=== PATIENT | male | born 1955 | race Caucasian/White ===

== ENCOUNTER 2019-11-23 04:26 | Inpatient (IN) ==
[2019-11-23] MEDS ORDERED: Ipratropium/Albuterol Neb 3 ML IH ONE (04:43)
[2019-11-23] MEDS ORDERED: methylPREDNISolone 125 MG/2 ML VIAL IVP ONE (04:43)
[2019-11-23 05:24] LABS: Basophils % 0.2 %; Eosinophils % 0.2 %; Hematocrit 41.6 % (37.5-50.1); Immature Granulocytes % 0.6 % (0-4); Lymphocytes # 3.1 K/mcL (0.6-4.6); Lymphocytes % 16.5 %; Mean Corpuscular HGB Conc 32.2 g/dL (31.6-35.5); Mean Corpuscular Hemoglobin 29.6 pg (28.0-33.3); Mean Corpuscular Volume 91.8 fL (83.0-100.0); Mean Platelet Volume 10.1 fL (9.4-12.4); Monocytes # 1.8 K/mcL (0.0-1.3); Monocytes % 9.4 %; Neutrophils # 13.7 K/mcL (1.6-8.9); Platelet Count 329 K/mcL (140-400); Red Blood Count 4.53 M/mcL (4.19-5.50); Red Cell Distribution Width 13.5 % (11.5-14.5); Segmented Neutrophils % 73.1 %; White Blood Count 18.7 K/mcL (4.3-11.1)
[2019-11-23 05:28] LABS: Hemoglobin 13.4 g/dL (12.9-16.9)
[2019-11-23] MEDS ORDERED: Azithromycin 500 MG in D5% in Water 250 ML IVPB STA (05:34)
[2019-11-23] MEDS ORDERED: cefTRIAXone 1,000 MG in Water for inj. (sterile) 10 ML IVP ONE (05:34)
[2019-11-23] MEDS ORDERED: Aspirin 81 MG TAB.CHEW PO STA (05:42)
[2019-11-23 05:54] LABS: BUN/Creatinine Ratio 27 (6-26); Blood Urea Nitrogen 20 mg/dL (8-23); Calcium 9.2 mg/dL (8.6-10.3); Carbon Dioxide 21 mEq/L (23-29); Chloride 105 mEq/L (98-107); Glucose 101 mg/dL (70-105); Osmolality,Calculated 285 (280-300); Potassium 4.1 mEq/L (3.5-5.1); Sodium 136 mEq/L (136-145); Troponin I 18.85 ng/mL (< 0.04); eGFR For African Americans > 60 (> 60); eGFR For Non-African Americans > 60 (> 60)
[2019-11-23] MEDS ORDERED: *HR* Heparin 5,000 UNIT/ML VIAL IVP ONE (06:01)
[2019-11-23] MEDS ORDERED: *HR* Heparin 5,000 UNIT/ML VIAL IVP PRN ×2 (06:01)
[2019-11-23] MEDS ORDERED: Heparin 25,000UNIT/250ML 1/2NS 25,000 UNIT/250 ML IV.SOLN IVC SCH (06:15)
[2019-11-23 06:24] LABS: Adenovirus Not Detected (Not Detect); Bordetella Pertussis Not Detected (Not Detect); Chlamydophila pneumoniae Not Detected (Not Detect); Coronavirus 229E Not Detected (Not Detect); Coronavirus HKU1 Not Detected (Not Detect); Coronavirus NL63 Not Detected (Not Detect); Coronavirus OC43 Not Detected (Not Detect); Human Metapneumovirus Not Detected (Not Detect); Human Rhinovirus/Enterovirus Not Detected (Not Detect); Influenza A Subtype 2009 H1 Not Detected (Not Detect); Influenza B Not Detected (Not Detect); Mycoplasma pneumoniae Not Detected (Not Detect); Parainfluenza Virus 1 Not Detected (Not Detect); Parainfluenza Virus 2 Not Detected (Not Detect); Parainfluenza Virus 3 Not Detected (Not Detect); Parainfluenza Virus 4 Not Detected (Not Detect); Respiratory Syncytial Virus Not Detected (Not Detect)
[2019-11-23] MEDS ORDERED: Isovue-370 500 ML BOTTLE IVP ONE ×2 (06:40→06:45)
[2019-11-23] MEDS ORDERED: *HR* FentaNYL (PF) 100 MCG/2 ML VIAL IVP ONE (06:52)
[2019-11-23] MEDS ORDERED: Naloxone 0.4 MG/ML INJ IVP PRN (07:20)
[2019-11-23] MEDS ORDERED: Ondansetron 4 MG/2 ML VIAL IVP PRN (07:20)
[2019-11-23] MEDS ORDERED: Perflutren Lipid Microsphere 1.3 ML in 0.9 % Sodium Chloride 8.7 ML IVP PRN ×2 (07:22→08:52)
[2019-11-23] MEDS ORDERED: Morphine Sulfate 2 MG/ML SYRINGE IVP ONE ×2 (07:55→09:14)
[2019-11-23] MEDS ORDERED: *HR* Metoprolol 5 MG/5 ML VIAL IVP PRN (08:02)
[2019-11-23] MEDS ORDERED: Aspirin 81 MG TAB.CHEW PO SCH (09:00)
[2019-11-23 09:09] LABS: ABG Base Excess 1 mEq/L (-2 to 3); ABG HCO3 24 mEq/L (21-27); ABG Oxygen Saturation 100 % (95-98); ABG PCO2 33 mmHg (35-45); ABG PH 7.47 pH Units (7.32-7.45); ABG PO2 157 mmHg (85-104); ABG TCO2 25 mEq/L (20-26)
[2019-11-23 09:18] LABS: INR 1.3; Prothrombin Time 14.4 Seconds (9.4-12.1)
[2019-11-23 09:28] LABS: Heparin anti-factor XA UFH 1.33 IU/mL (0.30-0.70)
[2019-11-23] MEDS ORDERED: Budesonide/Formoterol 160/4.5 1 PUFF INH IH SCH (10:00)
[2019-11-23] MEDS ORDERED: Levalbuterol 1 PUFF INHALER IH SCH (10:00)
[2019-11-23] MEDS ORDERED: Morphine Sulfate 2 MG/ML SYRINGE IVP PRN (11:00)
[2019-11-23] MEDS ORDERED: D5% in Water 1,000 ML IVC PRN (11:27)
[2019-11-23] MEDS ORDERED: *HR* Dextrose 50 % in Water (Vial) 50 ML VIAL IVP PRN (11:27)
[2019-11-23] MEDS ORDERED: Dextrose Gel 15 GM/37.5 ML TUBE PO PRN ×2 (11:27)
[2019-11-23] MEDS ORDERED: Insulin LISPRO 300 UNITS/3 ML VIAL SQ SCH (12:00)
[2019-11-23 14:04] VITALS: BP 98/64
[2019-11-24] MEDS ORDERED: Azithromycin 500 MG in 0.9 % Sodium Chloride 250 ML IVPB SCH (08:00)
[2019-11-24] MEDS ORDERED: cefTRIAXone 1,000 MG in Water for inj. (sterile) 10 ML IVP SCH (09:00)
[2019-11-25 03:12] LABS: Enterococcus by PCR Not Detected (Not Detect); blaKPC Carbapenem-Resist Gene Not Detected (Not Detect); mecA Methicillin-Resist Gene Not Detected (Not Detect); vanA/B Vancomycin-Resist Genes Not Detected (Not Detect)
[2019-11-25 03:13] LABS: Acinetobacter baumannii by PCR Not Detected (Not Detect); Candida albicans by PCR Not Detected (Not Detect); Candida glabrata by PCR Not Detected (Not Detect); Candida krusei by PCR Not Detected (Not Detect); Candida parapsilosis by PCR Not Detected (Not Detect); Candida tropicalis by PCR Not Detected (Not Detect); Enterobacter cloacae Cmplx PCR Not Detected (Not Detect); Enterobacteriaceae by PCR Not Detected (Not Detect); Escherichia coli by PCR Not Detected (Not Detect); Klebsiella oxytoca by PCR Not Detected (Not Detect); Klebsiella pneumoniae by PCR Not Detected (Not Detect); Proteus by PCR Not Detected (Not Detect); Pseudomonas aeruginosa by PCR Not Detected (Not Detect); Serratia marcescens by PCR Not Detected (Not Detect); Staphylococcus aureus by PCR Not Detected (Not Detect); Staphylococcus by PCR DETECTED (Not Detect); Streptococcus agalactiae(B)PCR Not Detected (Not Detect); Streptococcus by PCR Not Detected (Not Detect); Streptococcus pneumoniae PCR Not Detected (Not Detect); Streptococcus pyogenes (A) PCR Not Detected (Not Detect)
== END 2019-11-23 14:00 | disposition short-term general hospital (02) | DRG 190 ==
LOC: EMEROOARM 04:26 → ICNU 08:04
PROVIDERS: ADMIT Student in an Organized Health Care Education/Training Program; ATTEND Student in an Organized Health Care Education/Training Program